=== PATIENT | male | born 1990 ===

== ENCOUNTER → 2018-01-04 | Outpatient (REF) | payer OTHER ==
[2018-01-04 09:19] LABS: SEMEN APPEARANCE OPAQUE (OPAQUE)
[2018-01-04 09:20] LABS: % NORMAL FORMS 6 % (>=4); IMMOTILITY 59 %; NON PROGRESSIVE MOTILITY (c) 10 %; PROGRESSIVE MOTILITY (a) 31 % (>=32); SEMEN VISCOSITY LIQUID (LIQUID); SPERM ABNORMAL FORMS WBC'S NOTED; SPERM CONCENTRATION 42.2 M/ml (>=15.0); SPERM# 84.4 M/Ejac (>=39); TOTAL FUNCTIONAL 3.8 M/Ejac.; TOTAL MOTILITY 41 % (>=40); TOTAL PROGRESSIVE SPERM 26 M/Ejac.; WBC CONCENTRATION <=1 M/ml (<=1 M/ml)
== END ==
LOC: M LAB REF 09:12
DX: N46.9 Male infertility, unspecified (principal)

== ENCOUNTER → 2018-01-11 | Outpatient (REF) | payer OTHER ==
[2018-01-11 09:24] LABS: % NORMAL FORMS 13 % (>=4); IMMOTILITY 34 %; NON PROGRESSIVE MOTILITY (c) 12 %; PROGRESSIVE MOTILITY (a) 54 % (>=32); SEMEN APPEARANCE OPAQUE (OPAQUE); SEMEN VISCOSITY LIQUID (LIQUID); SEMEN VOLUME 2.2 ml (4.0-5.0); SPERM CONCENTRATION 28.7 M/ml (>=15.0); SPERM# 63.1 M/Ejac (>=39); TOTAL FUNCTIONAL 9.6 M/Ejac.; TOTAL MOTILITY 66 % (>=40); WBC CONCENTRATION >1 M/ml (<=1 M/ml)
== END ==
LOC: M LAB REF 09:12
DX: N46.9 Male infertility, unspecified (principal)

== ENCOUNTER → 2018-01-18 | Outpatient (REF) | payer OTHER ==
[2018-01-18 10:12] LABS: NON PROGRESSIVE MOTILITY (c) 20 %; PROGRESSIVE MOTILITY (a) 33 % (>=32); SEMEN APPEARANCE OPAQUE (OPAQUE); SEMEN VISCOSITY LIQUID (LIQUID); SEMEN VOLUME 1.3 ml (4.0-5.0); SEMEN pH 8.5 (7.0-8.0); SPERM CONCENTRATION 23.8 M/ml (>=15.0); TOTAL MOTILITY 53 % (>=40); WBC CONCENTRATION >1 M/ml (<=1 M/ml)
[2018-01-18 10:13] LABS: % NORMAL FORMS 7 % (>=4); IMMOTILITY 47 %; TOTAL FUNCTIONAL 1.7 M/Ejac.; TOTAL PROGRESSIVE SPERM 10.3 M/Ejac.
== END ==
LOC: M LAB REF 09:34
DX: N46.9 Male infertility, unspecified (principal)